=== PATIENT | male | born 1975 | race African-American/Black ===

== ENCOUNTER 2025-01-14 12:27 | Emergency (ER) | payer MEDICAID ==
[~2025-01-14] VITALS: Ht 193 cm; Wt 95.0 kg
[2025-01-14 12:38] VITALS: BP 143/91; PULSE 74; RESP 18; TEMP 98.1; O2SAT 98
[2025-01-14] MEDS ORDERED: IBUP-1492 PO (14:31)
[2025-01-14] MEDS ORDERED: PRED-554 PO (14:31)
[2025-01-14] MEDS ORDERED: ACYC-138 PO (14:31)
[2025-01-14] MEDS: ACYCLOVIR 200 MG CAPSULE PO ONE (14:40)
== END 2025-01-14 14:50 | disposition home or self-care (01) ==
LOC: EMS 12:27
DX: B02.9 Zoster without complications (principal); F17.210 Nicotine dependence, cigarettes, uncomplicated
CPT/HCPCS: 99283; J7512